=== PATIENT | male | born 1955 | race African-American/Black ===

== ENCOUNTER 2019-03-08 18:12 | Emergency (ER) | payer MEDICAID ==
[~2019-03-08] VITALS: Ht 167.6 cm; Wt 78.0 kg
[2019-03-08] MEDS ORDERED: IBUPROFEN 600MG TABLET PO ONE (20:00)
[2019-03-08 20:34] VITALS: BP 184/99
== END 2019-03-08 20:38 | disposition home or self-care (01) ==
LOC: ER 18:34
DX: S00.31XA Abrasion of nose, initial encounter (principal); W10.8XXA Fall (on) (from) other stairs and steps, initial encounter; Y93.89 Activity, other specified; Y92.522 Railway station as the place of occurrence of the external cause
CPT/HCPCS: 99282

== ENCOUNTER 2019-12-18 14:57 | Emergency (ER) | payer MEDICAID ==
[~2019-12-18] VITALS: Ht 172.7 cm; Wt 75.0 kg
[2019-12-18 17:52] VITALS: BP 138/98
== END 2019-12-18 17:56 | disposition home or self-care (01) ==
LOC: ER 14:57
DX: F43.20 Adjustment disorder, unspecified (principal); K02.9 Dental caries, unspecified; F41.9 Anxiety disorder, unspecified
CPT/HCPCS: 99283